=== PATIENT | male | born 1955 | race Caucasian/White ===

== ENCOUNTER → 2016-12-29 | Outpatient (CLI) | payer BC ==
[~2016-12-29] MED LIST: ASPIRIN PO; ASPIRIN81 M1 PO; ASPIRIN81 M2 PO; BENAZEPRIL HCL40 MG PO; CRESTOR10 MG PO; DITROPAN XL PO; FISH OIL 1,2001 EAC1 PO; HYDROCODONE-APA1 T41 PO; LIPITOR PO; LODINE500 MG PO; LORTAB 7.5-5001 TAB PO; LOTENSIN20 MG PO; METOPROLOL TAR25 MG PO; MULTI VITAMIN1 EACH PO; MULTI-DAY1 TAB PO; MULTI-VITAMIN1 TAB PO; NABUMETONE PO; NIASPAN1000 MG PO; NORVASC PO; OXYBUTYNIN10 MG/BOTT PO; PLAVIX PO
--- NOTE | ~2016-12-29 | TH ---
Unit #: [id number] #: [id number] Patient: JADEN NARVAEZ [id number] [address] [address] [id number] O MR#: [id number] NAME: JADEN NARVAEZ. : 1955 SEX: M STUDY DATE/TIME: 12/29/2016 UNIT: [facility] ROOM: STUDY DESCRIPTION: Nuclear Study Attending Physician: Sumeet Delgado M.D. Referring Physician: Sumeet Delgado M.D. Primary Care Physician: Janice Smith M.D. CARDIOLOGY REPORT EXAM Exercise Cardiolite Stress Test - Nuclear Portion PROCEDURE Using technetium 99m labeled Cardiolite, rest and stress SPECT images were obtained. Multiple SPECT images were obtained in various views including horizontal and vertical long axis and short axis views of the left ventricle. Images were obtained by gated SPECT method. The patient was administered 11.91 mCi of Cardiolite at rest. The patient was administered 35.4 mCi of Cardiolite at peak exercise. Total exercise time is 9 minutes 12 seconds. On the stress images, there is normal perfusion noted. The rest images show mild decreased isotope activity in the inferior wall consistent with soft tissue artifact. Comparing rest and stress images, there is no stress-induced ischemia noted. The left ventricular ejection fraction is calculated to be 63%. There is no focal wall motion abnormality seen. CONCLUSION 1. No stress-induced ischemia noted. 2. The left ventricular ejection fraction is calculated to be 63%. 3. There is no focal wall motion abnormality seen. 4. Normal exercise Cardiolite stress test. Dictated by... Chapin Sams TD: 12/30/2016 06:08 JOB #: [id number] Unit #: [id number] #: [id number] Patient: JADEN NARVAEZ CARDIOLOGY REPORT Page 1 of 1 X Rosetta Aleman MD <ELECTRONICALLY SIGNED> 02/09/17 1524 CARDIOLOGY REPORT
--- NOTE | ~2016-12-29 | ST ---
Unit #: [id number] #: [id number] Patient: JADEN NARVAEZ [id number] [address] [address] [id number] O MR#: [id number] NAME: JADEN NARVAEZ. : 1955 SEX: M STUDY DATE/TIME: 12/29/2016 UNIT: [facility] ROOM: STUDY DESCRIPTION: Exercise stress test Attending Physician: Sumeet Delgado M.D. Referring Physician: Sumeet Delgado M.D. Primary Care Physician: Janice Smith M.D. CARDIOLOGY REPORT STUDY PERFORMED EKG portion of Cardiolite exercise stress test. REASON FOR EXAM Coronary artery disease. PROCEDURE Baseline EKG is sinus bradycardia with a ventricular rate of 54 and nonspecific T wave abnormalities. The patient exercised on the treadmill according to modified Chavez protocol for 9 minutes achieving a work level of 10.4 METS. Resting heart rate was 54. Maximal heart rate was 146 beats per minute, representing 90% of maximal age-predicted heart rate. The patient's symptoms were fatigue and leg pain. There were no arrhythmias noted or significant ST changes. The test was stopped due to achieving maximal heart rate. IMPRESSION 1. This is a negative test. 2. There were no significant ST segment changes. 3. The patient experienced fatigue and leg pain. 4. There were no arrhythmias. 5. Please correlate with Cardiolite imaging. Dictated by... Estephanie Bui APRN for [facility] TD: 12/29/2016 13:12 JOB #: [id number] Unit #: [id number] #: [id number] Patient: JADEN NARVAEZ CARDIOLOGY REPORT Page 1 of 1 X CARDIOLOGY REPORT
== END | disposition home or self-care (01) ==
LOC: CNUC 06:35
DX: I25.10 Atherosclerotic heart disease of native coronary artery without angina pectoris (principal); E78.5 Hyperlipidemia, unspecified
CPT/HCPCS: 78452; 93017; A9500